=== PATIENT | male | born 1965 | race African-American/Black ===

== ENCOUNTER 2021-12-20 10:21 | Emergency (ER) | payer OTHER ==
[~2021-12-20] VITALS: Ht 182.9 cm; Wt 117.5 kg
[2021-12-20 10:28] VITALS: BP 137/78
--- NOTE | 2021-12-20 10:36 | NUR ---
PT AMBULATED TO BED 4
--- NOTE | 2021-12-20 10:41 | NUR ---
56 Y/O MALE C/O BUMP ON LEFT SIDE OF HEAD X1 YEAR, STATES NO PAIN BUT REPORTS "IT BOTHERS ME AND I WANT IT CUT OFF." PT DENIES TRAUMA. PT DENIES CHANGES IN VISION, INTERIANO. PT STATES ITS MORE OF AN UNCOMFORTABLE FEELING. PMH: DM, HTN NKA
[2021-12-20] MEDS ORDERED: LIDOCAINE/EPI 1% 1:100000 20 ML VIAL INJ ONE (12:15)
[2021-12-20] MEDS ORDERED: BACITRACIN OINT 500 UNITS/GM PKT TP ONE (13:10)
[2021-12-20] MEDS ORDERED: CEPH-588 PO (13:44)
[2021-12-20 13:55] VITALS: BP 137/78
== END 2021-12-20 13:56 | disposition home or self-care (01) ==
LOC: MED 10:21
DX: D36.9 Benign neoplasm, unspecified site (principal); E11.9 Type 2 diabetes mellitus without complications; I10 Essential (primary) hypertension; Z79.899 Other long term (current) drug therapy
CPT/HCPCS: 10060; 99284; J2001

== ENCOUNTER 2021-12-27 02:05 | Emergency (ER) | payer OTHER ==
[~2021-12-27] VITALS: Ht 182.9 cm; Wt 118.9 kg
[~2021-12-27 02:05] MED LIST: CEPH-588 PO
[2021-12-27 02:10] VITALS: BP 138/89
--- NOTE | 2021-12-27 02:15 | NUR ---
[place] in triage removing stitches
[2021-12-27 02:20] VITALS: BP 138/89
--- NOTE | 2021-12-27 02:20 | NUR ---
no nursing interventions needed.
--- NOTE | 2021-12-27 02:20 | NUR ---
Patient discharged with v/s stable. Written and verbal after care instructions given and explained. Patient verbalized understanding. Ambulatory with steady gait. All questions addressed prior to discharge. Advised to follow up with PMD.
== END 2021-12-27 02:20 | disposition home or self-care (01) ==
LOC: MED 02:05
DX: S01.01XD Laceration without foreign body of scalp, subsequent encounter (principal); E11.9 Type 2 diabetes mellitus without complications; I10 Essential (primary) hypertension; Z48.02 Encounter for removal of sutures; X58.XXXD Exposure to other specified factors, subsequent encounter
CPT/HCPCS: 99281